=== PATIENT | female | born 1985 | race Caucasian/White ===

== ENCOUNTER 2017-04-07 16:17 | Inpatient (IN) | payer OTHER ==
[2017-04-07] MEDS ORDERED: LR 1,000 ML IV PRN (16:47)
[2017-04-07] MEDS ORDERED: EPSOM SALT 454 GM TP PRN (16:47)
[2017-04-07] MEDS ORDERED: OXYTOCIN 20 UNIT in LR 1,000 ML IV PRN (16:47)
[2017-04-07] MEDS ORDERED: OLIVE OIL 118 ML BTL MISC PRN (16:47)
[2017-04-07] MEDS ORDERED: TERBUTALINE SULFATE 1 MG/ML VIAL IV PRN (16:47)
[2017-04-07] MEDS ORDERED: LIDOCAINE 1% 300 MG/30 ML SDV ONE (16:57)
[2017-04-07] MEDS ORDERED: OLIVE OIL 118 ML BTL ONE (16:57)
[2017-04-07] MEDS ORDERED: AMMONIA AROMATIC 1 EACH AMP IH ONE (16:57)
[2017-04-07] MEDS ORDERED: TERBUTALINE SULFATE 1 MG/ML VIAL ONE (16:58)
[2017-04-07] MEDS ORDERED: OXYTOCIN 10 UNIT/ML VIAL ONE (16:58)
[2017-04-07] MEDS ORDERED: MISOPROSTOL 200 MCG TAB ONE (16:58)
--- NOTE | 2017-04-07 17:37 | OBDEL ---
Info Type: Vaginal Presentation at Delivery: Vertex L&D Analgesia/Anesthesia Type: None GBS+: Yes (missed antibiotics due to rapid labor) - Hospital Course Intrapartum: 04/07/17 17:34 srom at 1600. arrived to labor and delivery in active labor. SVE 5 cm. rapid progress to complete in 40 minutes. was not able to get IV started or antibiotics before patient delivered. Indications for Delivery: Spontaneous Labor Vaginal Delivery - Delivery Provider Delivery Physician/CNM: Elena Laguerre - Labor and Delivery Onset of Contractions Date: 04/07/17 Onset of Contractions Time: 15:00 Onset of Contractions Type: Spontaneous Rupture of Membranes Date: 04/07/17 Rupture of Membranes Time: 15:00 Rupture of Membranes Type: Spontaneous Amniotic Fluid Color: Clear Dilation Complete Date: 04/07/17 Dilation Complete Time: 16:53 Placenta Delivery Date: 04/07/17 Placenta Delivery Time: 17:13 Total Hours of Labor: 2 Laceration: 2nd Degree Repair: 3-0 Vaginal Sponge Count Correct: Yes Vaginal Needle Count Correct: Yes Vaginal Sweep Performed: Yes EBL: 300 Delivery Comment: cytotec post due to no IV access and slight atony [place] Data EARL: 04/07/17 Gestational Age: 40 week(s) and 0 day(s) [place] Delivery Date: 04/07/17 Delivery Time: 17:02 Sex of Infant: Male Score (1 Min): 8 Score (5 Min): 9 ICD10 Worksheet Patient Problems: Problems Problem Status Onset Spontaneous vaginal delivery Acute Normal labor Acute
--- NOTE | 2017-04-07 17:48 | OBPROG ---
Labor Progress Note Assessment/Plan: Assessment: Plan: Subjective/Intrapartum Course: 04/07/17 17:34 srom at 1600. arrived to labor and delivery in active labor. SVE 5 cm. rapid progress to complete in 40 minutes. was not able to get IV started or antibiotics before patient delivered. - SVE Amniotic Fluid Color: Clear Dilation Complete Date: 04/07/17 Dilation Complete Time: 16:53 - AP Antepartum Course: 04/07/17 17:42 initiated care at [facility] at 9 weeks. 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 FOC tested negative. innatal negative. uncomplicated . GBS positive. PCN allergic. sensitive to clinda. zika exposure prepregnancy in [place]. negative testing. ICD10 Worksheet Patient Problems: Problems Problem Status Onset Normal labor Acute Spontaneous vaginal delivery Acute
[2017-04-07] MEDS: IBUPROFEN 600 MG TAB PO PRN (17:56)
--- NOTE | 2017-04-07 18:38 | GHP ---
[f rep st] PREOP HISTORY AND PHYSICAL DATE OF ADMISSION: 04/07/2017 ADMISSION DIAGNOSES: 1. Intrauterine at 40 weeks gestation. 2. GBS positive. 3. Penicillin allergic. 4. Active labor. 5. Spontaneous rupture of membranes. INDICATIONS: The patient is a 32-year-old 1, para 0, at 40 weeks gestation. She had spontaneous rupture of clear fluid this afternoon at 3:00 p.m. and contractions began increasing in frequency and intensity at that time. She arrived to Labor and Delivery 2 hours later, and was found to be 5 cm dilated and having strong regular painful contractions. The patient rapidly progressed to completely dilated before she was able to be given an IV for clindamycin for her group beta strep positive status. The patient rapidly progressed to complete and had a spontaneous vaginal delivery over a second- degree laceration. PAST MEDICAL HISTORY: Significant for Zika exposure pre while visiting [place]. Irritable bowel syndrome. History of abnormal Pap smears and HPV. History of shingles. History of pyelonephritis at age 23. MEDICATIONS: vitamins. PAST SURGICAL HISTORY: None. ALLERGIES: Sulfa which causes vomiting. Penicillin which causes hives. SOCIAL HISTORY: Patient is single but in a long-term relationship. The was not planned. She denies tobacco, alcohol, or drug use. FAMILY MEDICAL HISTORY: Noncontributory. [employer]OR [employer] HISTORY: Menarche age 12. Periods every 20-30 days, lasting 3-4 days. She is a 1, para 0. Current has been uncomplicated. She initiated care at [facility] at 9 weeks gestation. She had positive genetic testing to be a carrier for dysautonomia and hyperinsulinism as well as fragile X gupta zone, but the father of the baby tested negative. She had negative verify testing. She was in [place] prior to so she had potential risk for Zika exposure, so she had screening for that which was all negative. The patient does have a history of abnormal Pap smears remotely and testing positive for HPV but recent Pap smears have been negative. She denies any history of any other sexually transmitted diseases. REVIEW OF SYSTEMS: A 10-point review of systems is negative with the exception of the positive loss of fluid, painful contractions, good movements. She denies any headache, changes in vision, nausea, vomiting. PHYSICAL EXAMINATION: VITAL SIGNS: Stable. GENERAL APPEARANCE: Alert and oriented x3. She was uncomfortable and in pain at time of arrival. MUSCULOSKELETAL: Grossly intact. NEURO: Grossly intact. NECK: Mobile and supple. HEART: Rate is irregular, irregular. LUNGS: Clear to auscultation bilaterally. ABDOMEN: Gravid, nondistended, nontender. EXTREMITIES: Reveal no calf tenderness or edema. PELVIC EXAM: On arrival she was completely dilated and at +2 station and having strong regular contractions. heart tracing was limited due to patient's movement, but was reassuring. She was having contractions every 3 minutes. LABS: Blood type B positive, antibody screen negative, rubella immune , GBS positive, HBsAg negative, HIV negative. ASSESSMENT AND PLAN: A 32-year-old, 1, para 0, at 40 weeks gestation who was group B strep positive, who presented in active labor after spontaneous rupture of membranes and precipitously delivered. /[id number]/MODL MTDD
[2017-04-07] MEDS ORDERED: CLINDAMYCIN 900 MG/DEXTROSE 50 ML IV SCH (22:00)
[2017-04-08] MEDS: IBUPROFEN 600 MG TAB PO PRN ×4 (00:03→18:16)
[2017-04-08 08:24] VITALS: O2SAT 95
--- NOTE | 2017-04-08 15:46 | OBPP ---
Progress Note Assessment/Plan: Assessment: [id number] s/p 2nd degree laceration GBS+ untreated Plan: routine PP care ambulate cont plan to d/c home tomorrow 04/08/17 15:44 04/08/17 15:46 Subjective/ Course: 04/08/17 15:45 Pt doing well, she denies any pain or heavy bleeding. She does report cramping, relieved with ibuprofen. She is without difficulty. FOB @ BS and supportive. Objective: Temp Pulse Resp BP Pulse Ox 36.6 C 60 16 107/72 95 04/08/17 08:20 04/08/17 08:20 04/08/17 08:20 04/08/17 08:20 04/08/17 08:20 Uterine Position/Fundal Height: Umbilicus -2, Midline Uterine Tone: Firm Physical Exam - Physical Exam EENT: normal ENT inspection Neck: supple Abdomen: non-tender, soft Extremities: non-tender Skin: normal color, warm/dry, cyanosis Neuro/Psych: no motor/sensory deficits, alert, normal mood/affect, oriented x 3
--- NOTE | 2017-04-09 06:53 | OBGCSDC ---
General Delivery Information - General Info : 1 Para: 1 Abortions: 0 Type: Vaginal L&D Analgesia/Anesthesia Type: None Admission Date: 04/07/17 - Hospital Course Antepartum: 04/07/17 17:42 initiated care at [facility] at 9 weeks. 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 FOC tested negative. innatal negative. uncomplicated . GBS positive. PCN allergic. sensitive to clinda. zika exposure prepregnancy in [place]. negative testing. Intrapartum: 04/07/17 17:34 srom at 1600. arrived to labor and delivery in active labor. SVE 5 cm. rapid progress to complete in 40 minutes. was not able to get IV started or antibiotics before patient delivered. : 04/08/17 15:45 Pt doing well, she denies any pain or heavy bleeding. She does report cramping, relieved with ibuprofen. She is without difficulty. FOB @ BS and supportive. 04/09/17 06:57 S) Pt doing well, reports min pain and bleeding. she is ambulating and voiding without difficulty. She is . She desires discharge home today. O) VSS, afebrile constitutional: WNWF, A&Ox3 HEENT: normocephalic, atraumatic, supple Heart: RRR, No murmur Chest: CTA-B Abdomen: Soft, nontender Uterus: Firm at U-2 Lochia: Minimal rubra Perineum: healing well, moderate bruising, min edema Extremities: Trace edema, and negative Phuong's sign Neuro: Grossly normal A) 32-year-old S/P PPD#2 P) Discharge home today Continue Pelvic rest x6wks Discussed danger signs (infection, preeclampsia, depression, heavy bleeding, etc ) RTO in 4/6 weeks Vaginal - Delivery Provider Delivery Physician/CNM: Elena Laguerre - Diagnosis Labor: Spontaneous Rupture of Membranes Type: Spontaneous Amniotic Fluid Color: Clear Laceration: 2nd Degree Repair: 3-0 - Delivery EBL: 300 [place] Data EARL: 04/07/17 Gestational Age: 40 week(s) and 2 day(s) [place] Delivery Date: 04/07/17 Delivery Time: 17:02 Sex of Infant: Male Score (1 Min): 8 Score (5 Min): 9 Discharge Information - Discharge Information Prescriptions: Ibuprofen [Motrin (*)] 600 mg PO Q6HRS PRN #30 tab PRN Reason: post , inflammation Condition: Good
[2017-04-09] MEDS: IBUPROFEN 600 MG TAB PO PRN (08:01)
[2017-04-09 08:27] VITALS: BP 125/73; PULSE 65; RESP 18; TEMP 97
== END 2017-04-09 11:55 | disposition home or self-care (01) | DRG 775 ==
LOC: FLD 16:17 → FOB 20:07
PROVIDERS: ADMIT Obstetrics & Gynecology; ATTEND Obstetrics & Gynecology
PROC: 0KQM0ZZ Repair Perineum Muscle, Open Approach (ICD-10-PCS; principal; 2017-04-07)
PROC: 10E0XZZ Delivery of Products of Conception, External Approach (ICD-10-PCS; principal; 2017-04-07)
DX: O99.820 Streptococcus B carrier state complicating pregnancy (principal); Z37.0 Single live birth; Z3A.40 40 weeks gestation of pregnancy; O70.1 Second degree perineal laceration during delivery; Z88.0 Allergy status to penicillin
CPT/HCPCS: J3105